=== PATIENT | female | born 2000 | race American Indian/Alaskan Native ===

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

== ENCOUNTER 2018-05-31 08:42 | Emergency (ER) | payer MEDICAID ==
[2018-05-31 09:24] VITALS: BP 115/50
--- NOTE | 2018-05-31 09:52 | Emergency Department Report ---
HPI - General Chief Complaint: Eye Problems Time Seen by Provider: 05/31/18 09:41 - HPI HPI: 17-year-old female, who is also 18 weeks , presents to the emergency department with a complaint of a one-week history of some right eye swelling. It is sometimes painful. She denies any eye redness, discharge but sometimes says that she feels like her right eye will be intermittently blurry. She has tried some warm water and/or a warm compress without much relief. Her primary care physician is Dr. Pyle through [facility] but has not seen them regarding her symptoms. She has a history of hypertension during and some depression. No recent travel or sick contacts at home. ED Past Medical Hx - Past Medical History Hx Hypertension: Yes (during ) Hx Psychiatric Treatment: Yes (depression) Additional medical history: Depression - Surgical History Additional Surgical History: - Social History Smoking Status: Never Smoker Substance Use Type: None - Medications Home Medications: Home Medications Medication Instructions Recorded Confirmed Last Taken Type Amoxicillin [Trimox CAP] 500 mg PO Q8H #21 capsule 05/31/18 Unknown Rx ED Review of Systems ROS: Stated complaint: 18 WKS /MIGRANES Other details as noted in HPI Comment: All other systems reviewed and negative Constitutional: denies: chills, fever Eyes: other (right eyelid swelling and redness). denies: eye discharge ENT: denies: ear pain, throat pain Respiratory: denies: cough, shortness of breath, wheezing Cardiovascular: denies: chest pain, palpitations Gastrointestinal: denies: abdominal pain, nausea, diarrhea Genitourinary: denies: urgency, dysuria, discharge Musculoskeletal: denies: back pain, joint swelling, arthralgia Skin: denies: rash, lesions Neurological: denies: headache, weakness, paresthesias Physical Exam - Physical Exam Vital Signs: Vital Signs 05/31/18 09:19 Temperature 98.3 F Pulse Rate 62 Respiratory 16 Rate Blood Pressure 115/50 O2 Sat by Pulse 100 Oximetry Physical Exam: GENERAL: The patient is well-developed well-nourished. HENT: Normocephalic. Atraumatic. Patient has moist mucous membranes. EYES: Extraocular motions are intact. Pupils equal reactive to light bilaterally. There is some distal right upper eyelid erythema and swelling with what appears to be a stye towards the lateral portion of the eyelid. Visual acuity: OD 20/25, OS 20/20, both eyes 20/20. NECK: Supple. Trachea is midline. CHEST/LUNGS: Clear to auscultation. There is no respiratory distress noted. HEART/CARDIOVASCULAR: Regular. There is no tachycardia. There is no murmur. ABDOMEN: There is no abdominal distention. SKIN: here is some distal right upper eyelid erythema and swelling with what appears to be a stye towards the lateral portion of the eyelid. NEURO: The patient is awake, alert, and oriented. The patient is cooperative. The patient has no focal neurologic deficits. The patient has normal speech. MUSCULOSKELETAL: There is no tenderness or deformity. There is no evidence of acute injury. ED Course Vital Signs 05/31/18 09:19 Temperature 98.3 F Pulse Rate 62 Respiratory 16 Rate Blood Pressure 115/50 O2 Sat by Pulse 100 Oximetry ED Medical Decision Making - Medical Decision Making Patient presents with what appears to be a stye or potentially the start of some blepharitis. The eye itself does not appear to be involved. Patient has been using some warm compresses without much relief. She was placed on antibiotics and was given a referral for ophthalmology. She will return to the ER with any worsening of her symptoms or any acute distress. - Differential Diagnosis stye, chalazion, blepharitis Critical Care Time: No Critical care attestation.: If time is entered above; I have spent that time in minutes in the direct care of this critically ill patient, excluding procedure time. ED Disposition Clinical Impression: Stye Qualifiers: Laterality: right Eyelid: upper Qualified Code(s): H00.011 - Hordeolum externum right upper eyelid Disposition: - TO HOME OR SELFCARE Is pt being admited?: No Condition: Stable Instructions: Jennie (ED) Additional Instructions: Please follow-up with your primary care physician in the next few days. I have also given a referral for a local product marketing coordinator. Take the antibiotics as prescribed. Return to the emergency Department with any worsening of your symptoms or any acute distress. Prescriptions: Amoxicillin [Trimox CAP] 500 mg PO Q8H #21 capsule Referrals: PRIMARY CAREMD [Primary Care Provider] - 3-5 Days RAJENDRA LINDER MD [Staff Physician] - 3-5 Days Forms: Work/School Release Form(ED) Time of Disposition: 10:01
== END 2018-05-31 10:08 | disposition home or self-care (01) ==
LOC: ED 08:42
DX: O26.892 Other specified pregnancy related conditions, second trimester (principal); H00.011 Hordeolum externum right upper eyelid; O16.2 Unspecified maternal hypertension, second trimester; O99.342 Other mental disorders complicating pregnancy, second trimester; F32.9 Major depressive disorder, single episode, unspecified; Z3A.18 18 weeks gestation of pregnancy
CPT/HCPCS: 99282

== ENCOUNTER 2019-07-03 16:55 | Emergency (ER) | payer MEDICAID ==
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
[2019-07-03 17:57] LABS: HCG Qualitative,Urine Negative (Negative)
[2019-07-03 17:59] LABS: Bilirubin,Urine NEG (Negative); Blood,Urine NEG (Negative); Color,Urine Yellow (Yellow); Mucus,Urine 3+ /HPF; Protein,Urine <15 mg/dL mg/dL (Negative)
--- NOTE | 2019-07-03 19:34 | Cat Scan Report ---
CT head/brain wo con INDICATION / CLINICAL INFORMATION: 18 years Female; headache. TECHNIQUE: Routine CT head without contrast. All CT scans at this location are performed using CT dos e reduction for ALARA by means of automated exposure control. COMPARISON: None. FINDINGS: BRAIN / INTRACRANIAL CONTENTS: The brain demonstrate appropriate attenuation. There is relative decom pression of the ventricular system. However, there is no significant inferior shift of the intracrani al contents. There is no CT evidence of acute intracranial hemorrhage or significant mass effect. The carpenter-white matter differentiation appears fairly well-maintained. ORBITS: No significant abnormality of visualized orbits. SINUSES / MASTOIDS: No significant abnormality the visualized paranasal sinuses or mastoid air cells. CRANIOCERVICAL JUNCTION: No significant abnormality. ADDITIONAL FINDINGS: None. IMPRESSION: 1. There is no CT evidence of acute intracranial process. Signer Name: Erick Jansen MD Signed: 07/03/2019 7:29 PM Workstation Name: [id number]
[2019-07-03] MEDS: BENADRYL PO ONE ×2 (21:33→21:53)
[2019-07-03] MEDS: TYLENOL PO ONE ×2 (21:34→21:53)
[2019-07-03] MEDS: DECADRON IM ONE ×2 (21:34→21:52)
[2019-07-03] MEDS: REGLAN PO ONE ×2 (21:34→21:53)
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
[2019-07-03 22:07] VITALS: BP 105/73
== END 2019-07-03 22:06 | disposition home or self-care (01) ==
LOC: ED 16:55
DX: S09.90XA Unspecified injury of head, initial encounter (principal); F32.9 Major depressive disorder, single episode, unspecified; I10 Essential (primary) hypertension; Z79.899 Other long term (current) drug therapy; Y08.89XA Assault by other specified means, initial encounter; Y93.89 Activity, other specified; Y92.89 Other specified places as the place of occurrence of the external cause; Y99.8 Other external cause status
CPT/HCPCS: 70450; 81001; 81025; 96372; 99284; J1100

== ENCOUNTER 2021-06-25 09:20 | Emergency (ER) | payer MEDICAID ==
[2021-06-25 09:30] VITALS: BP 122/40
--- NOTE | 2021-06-25 10:02 | Emergency Department Report ---
Chief Complaint: Urogenital-Female Stated Complaint: VAGINAL IRRITATION AND STD POSS X 3 DAYS Time Seen by Provider: 06/25/21 10:00 - HPI History of Present Illness: 20-year-old -[place] female presents to the emergency room complaining of a 3-day history of vaginal irritation. Patient reports that she thinks she has an STD. She comes in wanting to be tested and treated. Patient denies any abdominal pain at this time denies any vaginal discharge no vaginal pain she states is irritated. - Exam Vital Signs: Vital Signs 06/25/21 06/25/21 09:25 09:26 Temperature 98.3 F 98.3 F Pulse Rate 68 64 Respiratory 16 17 Rate Blood Pressure 122/40 O2 Sat by Pulse 100 98 Oximetry Physical Exam: General: Awake, appropriately interactive, no acute distress. Neck: Supple. Full range of motion intact. Cardiovascular: Normal peripheral perfusion. Pulmonary: No respiratory distress. Patient is speaking normally without use of accessory muscles. Skin: No apparent rashes or lesions. Neurological: No facial asymmetry. Speech is clear. Follows commands. Patient is alert and oriented. Musculoskeletal: Full range of motion, no crepitus. Able to bear weight and ambulate without difficulty. Distal neurovascular and motor/sensory function is intact. Psych: Cooperative. Appropriate mood and affect. MSE screening note: Focused history and physical exam performed. Due to findings the following was ordered: 20-year-old -[place] female presents to the emergency room complaining of a 3-day history of vaginal irritation. Patient reports that she thinks she has an STD. She comes in wanting to be tested and treated. Patient denies any abdominal pain at this time denies any vaginal discharge no vaginal pain she states is irritated. Patient states that she has an appointment with her KEYBOARD OPERATOR on the of this month. She states that she prefers to be seen evaluated and then treated. She states that she will go to the health department to be checked for everything. ED Disposition for MSE Disposition: HOME / SELF CARE / HOMELESS Is pt being admited?: No Does the pt Need Aspirin: No Condition: Stable
== END 2021-06-25 10:49 | disposition home or self-care (01) ==
LOC: ED 09:20
DX: N89.8 Other specified noninflammatory disorders of vagina (principal); Z11.3 Encounter for screening for infections with a predominantly sexual mode of transmission
CPT/HCPCS: 99281